=== PATIENT | female | born 2000 | race Caucasian/White ===

== ENCOUNTER 2024-01-14 18:21 | Emergency (ER) | payer MEDICAID, SELFPAY ==
[2024-01-14 18:26] VITALS: BP 137/71; PULSE 88; RESP 18; TEMP 36.8; O2SAT 98; BMI 35.0
--- NOTE | 2024-01-14 18:26 | ED_ITS ---
HPI - Ear Problem General Chief complaint: Ear Problems Stated complaint: Left ear pain Time Seen by Provider: 01/14/24 18:25 Source: patient Mode of arrival: ambulatory Limitations: no limitations History of Present Illness ED Provider: Wen Luciano APRN HPI Narrative: 23 yo female with no known medical history here with complaints of left ear pain since Monday with itching. No drainage. No fevers, chills, hearing loss. No recent illneses. Related Data Previous Rx's ?Medication ?Instructions ?Recorded amoxicillin 500 mg capsule 500 mg PO BID #20 caps 01/14/24 Allergies Allergy/AdvReac Type Severity Reaction Status Date / Time No Known Allergies Allergy Verified 01/14/24 18:27 Review of Systems Review of Systems: Yes all other systems are reviewed and are negative Constitutional: Constitutional: Reports no additional constitutional complaints, Denies body ache(s), Denies chills, Denies fever(s), Denies headache(s) and Denies weakness Eyes: Eyes: Reports no additional eye complaints and Denies change in vision ENT: Reports system reviewed and no additional complaints, except as documented, Denies dizziness, Denies ear discharge, Reports otalgia, Denies headache(s), Denies hearing loss, Denies nasal congestion, Denies nasal discharge, Denies neck pain and Denies tinnitus Cardiovascular: Cardiovascular: Reports no additional cardiovascular complaints, Denies chest pain, Denies leg edema and Denies dyspnea Respiratory: Respiratory: Reports no additional respiratory complaints, Denies cough and Denies dyspnea Gastrointestinal: Gastrointestinal: Reports no additional gastrointestinal complaints, Denies abdominal pain, Denies diarrhea, Denies nausea and Denies vomiting Genitourinary: Genitourinary: Reports no additional female genitourinary complaints and Denies urinary incontinence Musculoskeletal: Musculoskeletal: Reports no additional musculoskeletal complaints, Denies back pain, Denies arthralgias, Denies joint swelling, Denies neck pain, Denies numbness and Denies tingling Integumentary/Breasts: Skin/Breast: Reports system reviewed and no additional complaints, except as docu and Denies rash Neurologic: Reports system reviewed and no additional complaints, except as documented, Denies Abnormal speech present, Denies dizziness, Denies headache(s), Denies numbness, Denies tingling and Denies weakness [facility] Past Medical History Attestation statement: The following information was validated with the patient. Source: old records reviewed and nursing notes reviewed Social History Social History Do you have a plan to hurt others: No Plan Physical Exam Vital Signs: Vital Signs: Last Vital Signs Temp 98.2 F 01/14/24 18:26 Pulse 88 01/14/24 18:26 Resp 18 01/14/24 18:26 BP 137/71 01/14/24 18:26 Pulse Ox 98 01/14/24 18:26 O2 Del Method Room Air 01/14/24 18:26 BMI result Body Mass Index 35.0 Const: General: cooperative, healthy appearing, comfortable and no acute distress Orientation/consciousness: patient oriented x3 Limitations: no limitations HEENT: Head: Yes normal to inspection Ears: hearing grossly normal bilaterally, TM normal on the right, EAC's normal, mastoids normal, no periauricular adenopathy and TM abnormal (left ) bulging, wth effusion and erythematous General nose exam: Normal external nose present Face and sinus: Yes normal facial exam Mouth: Normal oral and palatal mucosa present Throat: Yes posterior oropharynx normal, Yes tonsils normal and Yes uvula midline Eyes: General: appearance normal, both eyes and all related structures Pupils: Equal, round and reactive pupils present Neck: Neck: Yes normal visual inspection, Yes full ROM, Yes no lymphadenopathy and Yes no meningeal signs Chest: Chest palpation & inspection: normal inspection of the chest Resp: Effort & Inspection: normal respiratory effort Auscultation: clear to auscultation bilaterally Cardio: Rate: regular rate Rhythm: regular rhythm Peripheral pulses: Peripheral pulses 2+ throughout GI: Inspection: Yes normal to inspection Palpation (GI): Soft to palpation and nontender Auscultation: normal bowel sounds Back/Spine/Pelvis: Thoracic/Lumbar Spine: thoracic and lumbar spine normal to inspection Skin: General skin exam: no rashes or lesions noted Neuro: General: patient oriented x3, no meningeal signs, no focal motor deficits and normal sensation to monofilament Cranial nerves: Yes Equal, round and reactive pupils present Cognition (Neuro): normal cognition Speech: No Abnormal speech present Gait exam (Neuro): Normal gait present Motor exam (neuro): 5/5 motor strength present throughout Extrem: General: Yes normal to inspection Medical Decision Making Medical Decision Making [facility] Narrative: 23 yo female with no known medical history here with complaints of left ear pain since Rafa with itching. No drainage. No fevers, chills, hearing loss. No recent illneses. Exam is c/w with L AOM Will place on amoxicillin x 10 days Differential Diagnosis Differential Diagnoses: The differential diagnosis associated with the presentation includes Otitis media Low suspicion for otitis externa, malignant otitis externa, mastoiditis Admission/Observation Consideration of admission/observation: Escalation of care including admission/observation considered low suspicion of malignant otitis externa, mastoiditis requiring advanced imaging, urgent ENT consultation Tests considered The following testing was considered but not selected: low suspicion of malignant otitis externa, mastoiditis requiring advanced imaging Prescription Management I considered prescription management with: Antibiotic Discharge Plan Discharge Clinical Impression: Otitis media Patient Disposition: Home, Self-Care Instructions: Ear Infection (ED) Additional Instructions: Take Motrin or Tylenol for pain as needed at home Take the antibiotic as prescribed Prescriptions: New amoxicillin 500 mg capsule 500 mg PO BID Qty: 20 0RF Referrals: Physician,Unknown J [Primary Care Provider] - 1 week
[2024-01-14 18:38] VITALS: BP 137/71; PULSE 88; RESP 18; TEMP 36.8; O2SAT 98
== END 2024-01-14 18:39 | disposition home or self-care (01) ==
LOC: HO.ED 18:36
PROVIDERS: Emergency Provider Internal Medicine
DX: H66.92 Otitis media, unspecified, left ear (principal); H92.02 Otalgia, left ear
CPT/HCPCS: 99282

== ENCOUNTER 2024-11-26 14:18 | Outpatient (REF) | payer MEDICAID, SELFPAY ==
--- OUTSIDE RECORDS SUMMARY | 2024-11-26 09:40 | XMS_ITS | Encounter Summary ---
Author Organization [employer] Address [address] [place] [address] Care Team Providers Care Rolling Mill Operator Helper Name Role Phone Marleen Muñoz MD Primary Care Provider [phone] Reason for Visit * Reason Comments Cervical Cancer Screening Encounter Details Date Type Department Care Team (Latest Contact Info) Description 11/26/2024 9:40 AM EDT Procedure Visit [facility] [address] [place], [place] [id number] Jammie Tobias MD [address] [place] [address] Cervical cancer screening (Primary Dx) Social History Tobacco Use Types Packs/Day Years Used Date Smoking Tobacco: Never Smokeless Tobacco: Never Depression Answer Date Recorded Patient Health Questionnaire-9 Score 4 10/28/2024 Patient Health Questionnaire-9 Score 4 10/28/2024 Last PHQ-9: Questionnaire Data Not on file 0 10/28/2024 Housing Stability Answer Date Recorded What is your housing situation today? I have maribel pascal 10/28/[address] you li ve. Do you have problems with any of the following? None of the above 10/28/2024 Food Insecurity Answer Date Recorded Within the past 12 months, y ou worried that your food would run out before you got money to buy more: Never True 10/28/2024 Within the past 12 months,th e food you bought just didn't last and you didn't have enough money to get more: Never True 01/2025 Transportation Answer Date Recorded In the past 12 months, has l ack of transportation kept you from medical appts, meetings, work or from getting things needed for daily living? No 10/28/2024 Utilities Answer Date Recorded In the past 12 months, has t he electric, gas, oil or water company threatened to shut off services in your home? No 11/14/2024 Depression Answer Date Recorded Patient Health Questionnaire-2 Score 1 10/28/2024 Internet Access Answer Date Recorded Internet Access Q1 No 11/14/2024 Internet Access Q2 I do not want or need it 10/19 Comments Unknown Sex and Gender Information Value Date Recorded Sex Assigned at Female 08/29/2024 9:22 AM EDT Legal Sex Female 8:40 PM EDT Gender Identity Female 08/29/2024 9:22 AM EDT Sexual Orientation Straight 08/29/2024 9: 22 AM EDT documented as of this encounter Last Filed Vital Signs Vital Sign Reading Time Taken Comments Blood Pressure 124/82 11/26/2024 9:46 AM EDT Pulse 76 11/26/2024 9:46 AM EDT Temperature 37 C (98.6 F) 11/26/2024 9:46 AM EDT Respiratory Rate 20 11/26/2024 9:46 AM EDT Oxygen Saturation - - Inhaled Oxygen Concentration - - Weight 81.3 kg (179 lb 3.2 oz) 11/26/2024 9:46 A M EDT Height 154 cm (5' 0.63 ) 11/26/2024 9:46 AM EDT Body Mass Index 34.27 11/26/2024 9:46 AM EDT documented in this encounter Progress Notes * Jammie Tobias MD - 11/26/2024 9:40 AM EDT Images from the original note were not included. Subjective Patient ID: Judy Byrnes is a 24 y.o. female who presents for Cervical Cancer Screening. 24 y.o. female here for annual well woman preventive exam. LMP: Patient's last menstrual period was 11/20/2024 (exact date). Sexual activity: Social History Substance and Sexual Activity Sexual activity: Yes Partners: Male control/protection: Rhythm intention: BC method: Smoking hx: Tobacco Use: Low Risk (11/26/2024) Tobacco Smoking Tobacco Use: Never Smokeless Tobacco Use: Never Passive Exposure: Not on file Alcohol use hx: Social History Substance and Sexual Activity Alcohol use: None OBHx: # 1 - Date: None, Sex: None, Weight: None, GA: None, Type: None, Apgar1: None, Apgar5: None, Living: None, Comments: None # 2 - Date: None, Sex: None, Weight: None, GA: None, Type: None, Apgar1: None, Apgar5: None, Living: None, Comments: None IPV: Denies IPV Reviewed family hx Review of patient's family history indicates: Problem: Other (htn) Relation: Mother Name: Age of Onset: (Not Specified) Problem: Other (htn) Relation: Father Name: Age of Onset: (Not Specified) Problem: Ovarian cancer Relation: Father's Sister Name: Age of Onset: (Not Specified) Health Maintenance: No results found for: HMPAP , HMMAMMO , HMCOLON Review of Systems Constitutional: Negative for appetite change, fatigue and fever. HENT: Negative for congestion, postnasal drip and rhinorrhea. Eyes: Negative for discharge and redness. Respiratory: Negative for apnea, cough, chest tightness and shortness of breath. Cardiovascular: Negative for chest pain. Gastrointestinal: Negative for abdominal pain. Endocrine: Negative for polyphagia. Genitourinary: Negative for difficulty urinating, dysuria and urgency. Musculoskeletal: Negative for arthralgias. Neurological: Negative for dizziness, light-headedness, numbness and headaches. Hematological: Negative for adenopathy. Does not bruise/bleed easily. Objective Visit Vitals BP 124/82 Pulse 76 Temp 98.6 ??F (37 ??C) (Oral) Resp 20 Ht 5' 0.63 (1.54 m) Wt 179 lb 3.2 oz (81.3 kg) LMP 11/20/2024 (Exact Date) BMI 34.27 kg/m?? Smoking Status Never BSA 1.86 m?? Physical Exam Vitals reviewed. Exam conducted with a child specialist present. HENT: Head: Normocephalic and atraumatic. Pulmonary: Effort: Pulmonary effort is normal. Chest: Chest wall: No deformity, tenderness or crepitus. Breasts: Breasts are symmetrical. Right: Normal. No inverted nipple, mass, nipple discharge, skin change or tenderness. Left: Normal. No inverted nipple, mass, nipple discharge, skin change or tenderness. Comments: Left sided ecchymosis Genitourinary: Urethra: No prolapse. Vagina: Normal. Cervix: Normal. Rectum: Normal. Musculoskeletal: Cervical back: Normal range of motion. Lymphadenopathy: Upper Body: Right upper body: No supraclavicular, axillary or pectoral adenopathy. Left upper body: No supraclavicular, axillary or pectoral adenopathy. Psychiatric: Mood and Affect: Mood normal. Assessment/Plan Problem List Items Addressed This Visit Cervical cancer screening - Primary 24 y.o. here for cervical cancer screening. Will continue monitoring following ASCCP guidelines. Rpt 3 yrs Relevant Orders Pap Smear documented in this encounter Miscellaneous Notes * Assessment & Plan Note - Jammie Tobias MD - 11/26/2024 10:07 AM EDT Associated Problem(s): Cervical cancer screening 24 y.o. here for cervical cancer screening. Will continue monitoring following ASCCP guidelines. Rpt 3 yrs documented in this encounter Plan of Treatment Scheduled Orders Name Type Priority Associated Diagnoses Orde r Schedule Pap Smear Pathology and Cytology Routine Cervical cancer screening Ordered: 11/26/2024 documented as of this encounter Visit Diagnoses Diagnosis Cervical cancer screening- Primary Screening for malignant neoplasm of the cervix documented in this encounter Additional Health Concerns Assessment Noted Time PHQ-9 Depression Total Score: 4 10/29/19 25 11:17 AM EDT documented as of this encounter Care Teams Rolling Mill Operator Helper Relationship Specialty Start Date End Date Marleen Muñoz MD [address] [place] [id number] PCP - General Family Medicine 11/14/24 documented as of this encounter
--- OUTSIDE RECORDS SUMMARY | 2024-11-26 15:00 | XMS_ITS | Encounter Summary ---
Author Organization [facility] Address [address] [place] [address] Care Team Providers Care Binder Stripper Hand Name Role Phone Jessica Lamas Primary Care Provider [phone] Reason for Referral * Consultation (Urgent) - Authorized Specialty Diagnoses / Procedures Referred By Rajinder barr Referred To Contact Otolaryngology Diagnoses Abscess of left ear canal Otitis externa of left ear, unspecified chronicity, unspecified type Radha Hughes [address] [place] [phone] Phone: tel: fax: [facility] [address] [place] [address] Phone: tel: fax: Referral ID Status Reason Start Date Expiration Date Visits Requested Visits Authorized [id number] Authorized Specialty Services Required 10/29/2024 11/29/2025 6 6 Reason for Visit * Reason Comments left ear canal abscess and Oe * Consultation (Urgent) - Authorized Specialty Diagnoses / Procedures Referred By Rajinder barr Referred To Contact Otolaryngology Diagnoses Abscess of left ear canal Otitis externa of left ear, unspecified chronicity, unspecified type Radha Hughes [address] [place] [id number] Phone: tel: fax: [facility] [address] [place] [phone] Phone: tel: fax: Referral ID Status Reason Start Date Expiration Date Visits Requested Visits Authorized [id number] Authorized Specialty Services Required 10/29/2024 11/29/2025 6 6 Encounter Details Date Type Department Care Team (Latest Contact Info) Description 11/26/2024 3:00 PM EDT Hospital Encounter [facility] [address] [place], [place] [id number] Physical Therapy Coordinator: Urmila Martinez, CRISTI Mccracken [address] [place] [phone] Itching of ear (Primary Dx) Social History Tobacco Use Types Packs/Day Years Used Date Smoking Tobacco: Never Assessed Comments Unknown Sex and Gender Information Value Date Recorded Sex Assigned at Not on file Legal Sex Female 11:24 AM EDT Gender Identity Female 11/26/2024 1:01 PM EDT Sexual Orientation Straight 11/26/2024 1: 01 PM EDT documented as of this encounter Last Filed Vital Signs Vital Sign Reading Time Taken Comments Blood Pressure 133/82 11/26/2024 3:41 PM EDT Pulse 74 11/26/2024 3:41 PM EDT Temperature - - Respiratory Rate - - Oxygen Saturation - - Inhaled Oxygen Concentration - - Weight - - Height - - Body Mass Index - - documented in this encounter Progress Notes * CRISTI Mckeon - 11/26/2024 3:59 PM EDT Date of visit: 11/26/2024 Name: Judy Sanford : 2000 Chief Complaint: Left itchy ear History of Present Illness: Judy is a pleasant 24 y.o. female who says she was treated for a left ear canal abscess in the ED a month ago with oral antibiotics and since then her left otalgia has resolved; however, she continues to have chronic ear itchiness. She says she often uses a lani pin to scratch her ears and thenthey get infected. She also complains of intermittent otalgia. She denies any otorrhea, fever/chills or any other pertinent medical problems. REVIEW OF SYSTEMS: A 10 point review of systems was conducted with the patient and is otherwise negative except as noted in the history of present illness No past medical history on file. No past surgical history on file. Click to expand medication list[1] No family history on file. Allergies: No Known Allergies Vital signs: BP 133/82 (BP Location: Left arm, Patient Position: Sitting) Pulse 74 Otologic Exam: Both ears were first examined otoscopically, but due to the patient's clinical presentation and theneed for depth perception in evaluating the ear canal and tympanic membrane, both ears were examined under binocular microscopy. AURICLES: No lesions RIGHT EAR: The external auditory canal is normal, the TM is healthy in appearance with normal landmarks. There is no evidence of effusion, middle ear mass or defects within the drum. The TM is mobileon pneumatic otoscopy LEFT EAR: The external auditory canal is normal, the TM is healthy in appearance with normal landmarks. There is no evidence of effusion, middle ear mass or defects within the drum. The TM is mobile on pneumatic otoscopy Facial function normal. No spontaneous nystagmus. General Head and Neck Exam: GENERAL: Well-nourished female, no acute distress. HEAD: Normocephalic, atraumatic, no large lesions. VOICE: Strong without significant hoarseness. EYES: Normal ocular motility, sclera and conjunctiva clear, no proptosis NOSE: Normal external appearance; mucosa is pink and moist, septum is minimally deviated, no significant turbinate hypertrophy. ORAL CAVITY: buccal mucosa moist, no lesions. Tongue no lesions, Hard palate normal, no masses. OROPHARYNX: Soft palate normal, no lesions, normal elevation, no tonsillar abnormalities Posterior pharyngeal wall: No cobblestoning FACE AND SALIVARY GLANDS: +Significant TMJ tenderness. No salivary gland masses or sinus tenderness. NECK: No masses or crepitus, trachea midline. THYROID: No thyroid tenderness or appreciable thyroid masses. LYMPHATIC: No neck lymphadenopathy. CARDIOVASCULAR: No upper extremity edema. RESPIRATORY: Unlabored without stridor or retractions. PSYCH: Oriented and normally conversant. Assessment and Plan: Judy is a pleasant 24 y.o. female who says she was treated for a left ear canal abscess in the ED a month ago with oral antibiotics and since then her left otalgia has resolved; however, she continues to have chronic ear itchiness. She says she often uses a lani pin to scratch her ears and then they get infected. She also complains of intermittent otalgia. She denies any otorrhea, fever/chills or any other pertinent medical problems. No concerning findings on exam so I reassured her that the left ear infection appears to have resolved. I recommended dermotic ear drops for mild eczematous otitis and cautioned her against sticking anything in her ears. Additionally, I counseled her about TMJ and recommended wearing a ocean lifeguard specialist,softer foods, warm compresses and seeing her dentist. She will follow up with ENT as needed if any new or worsening symptoms. I sincerely appreciate the opportunity to participate in Judy's care today. Please do not hesitate to contact me with any questions. Malik Martinez PA-C 11/26/2024 3:59 PM [1] Not in a hospital admission. documented in this encounter Plan of Treatment Scheduled Referrals Name Type Priority Associated Diagnoses Order Schedule Ambulatory referral to ENT Outpatient Referral Routine Once for 1 Occurrences starting 11/26/2024 until 11/26/2024 documented as of this encounter Visit Diagnoses Diagnosis Itching of ear- Primary documented in this encounter Care Teams Binder Stripper Hand Relationship Specialty Start Date End Date Jessica Lamas [address] [place] [address] PCP - General 10/29/24 documented as of this encounter
--- OUTSIDE RECORDS SUMMARY | 2024-11-26 16:53 | XMS_ITS | Clinical Summary ---
Author Organization [facility] Address [address] [id number] Care Team Providers Care Senior Functional Analyst Name Role Phone Jessica Lamas Primary Care Provider [phone] Allergies No known active allergies Medications fluocinolone acetonide oiL 0.01 % drops Place 4 drops into affected ear(s) 2 times a day as needed (itchy ears). 20 mL 11 11/26/2024 Active Encounters Date Type Department Care Team Description 11/26/2024 3:00 PM EDT Hospital Encounter [facility] [address] [place] [id number] Sr Account Executive: Urmila Martinez, CRISTI Mccracken Itching of ear (Primary Dx) 11/01/2024 Telephone [facility] [address] [place] [phone] Sr Account Executive: Urmila Muse Telephone Intake, Staff PAC Patient Request Call Back; PAC Appt Request - New 10/29/2024 Transcribe Orders [facility]erral [facility] [address] [place] [id number] Radha Hughes Abscess of left ear canal (Primary Dx); Otitis externa of left ear, unspecified chronicity, unspecified type from Last 3 Months Social History Tobacco Use Types Packs/Day Years Used Date Smoking Tobacco: Never Assessed Comments Unknown Sex and Gender Information Value Date Recorded Sex Assigned at Not on file Legal Sex Female 11:24 AM EDT Gender Identity Female 11/26/2024 1:01 PM EDT Sexual Orientation Straight 11/26/2024 1: 01 PM EDT Last Filed Vital Signs Vital Sign Reading Time Taken Comments Blood Pressure 133/82 11/26/2024 3:41 PM EDT Pulse 74 11/26/2024 3:41 PM EDT Temperature - - Respiratory Rate - - Oxygen Saturation - - Inhaled Oxygen Concentration - - Weight - - Height - - Body Mass Index - - Plan of Treatment Health Maintenance Due Date Last Done Comments HIV Screening 2000 Hepatitis C Screening 2000 Pap Smear 1998 Varicella Vaccines (1 of 2 - 13+ 2-dose series) 2011 HPV Vaccines (1 - 3-dose series) 2013 Hepatitis B Vaccines (1 of 3 - 19+ 3-dose series) 2017 Alcohol/Substance Use Screening 03/20/2024 Depression Screening and Follow-Up 03/20/2024 Social Drivers of Health Hortensia ual Screening 03/20/2024 COVID-19 Vaccine (1 - 2023-2 5 season) 2024 Influenza Vaccine (#1) 2024 DTaP,Tdap,and Td Vaccines (2 - Td or Tdap) 11/14/2034 11/14/2024 RSV Vaccine (60+ years old a nd patients) (1 - 1-dose 75+ series) 2073 Pneumococcal Vaccine: Pediat staci (0-5 Years) and At-Risk Patients (6-50 Years) Aged Out No longer eligible b ased on patient's age to complete this topic Insurance HSNO/FREE CARE Care Teams Senior Functional Analyst Relationship Specialty Start Date End Date Jessica Lamas [address] [place] [phone] PCP - General 10/29/24
--- OUTSIDE RECORDS SUMMARY | 2024-11-26 16:53 | XMS_ITS | Encounter Summary ---
Author Organization [facility] Address [address] [place] [address] Care Team Providers Care Oracle Adf Consultant Name Role Phone Jessica Lamas Primary Care Provider [phone] Reason for Visit * Reason Onset Date Comments PAC Patient Request Call Back 11/01/2024 PAC Appt Request - New 11/01/2024 Encounter Details Date Type Department Care Team ([facility] st Contact Info) Description 11/01/2024 Telephone [facility] [address] [place] [address] Qa Developer: Urmila Muse Telephone Intake, Staff PAC Patient Request Call Back; PAC Appt Request - New Social History Tobacco Use Types Packs/Day Years Used Date Smoking Tobacco: Never Assessed Comments Unknown Sex and Gender Information Value Date Recorded Sex Assigned at Not on file Legal Sex Female 11:24 AM EDT Gender Identity Female 11/26/2024 1:01 PM EDT Sexual Orientation Straight 11/26/2024 1: 01 PM EDT documented as of this encounter Miscellaneous Notes * Telephone Encounter - Eamon Watson - 11/01/2024 11:35 AM EDT Left ear abscess-referral from ED in [place]-as per DT, schedule within 14 days PAC does not have anything available Please assist patient w/yard jockey [phone] documented in this encounter Plan of Treatment Not on file documented as of this encounter Visit Diagnoses Not on filedocumented in this encounter Care Teams Oracle Adf Consultant Relationship Specialty Start Date End Date Jessica Lamas [address] [place] [id number] PCP - General 10/29/24 documented as of this encounter
--- OUTSIDE RECORDS SUMMARY | 2024-11-26 16:53 | XMS_ITS | Encounter Summary ---
Author Organization [employer] Address [address] [facility] [address] [place] [address] Care Team Providers Care Assessment Technician Name Role Phone Marleen Muñoz MD Primary Care Provider [phone] Encounter Details Date Type Department Care Team (Latest Contact Info) Description 11/26/2024 Travel Social History Tobacco Use Types Packs/Day Years [...] AM EDT documented as of this encounter Plan of Treatment Not on file documented as of this encounter Visit Diagnoses Not on filedocumented in this encounter Additional Health Concerns Assessment Noted Time PHQ-9 Depression Total Score: 4 10/29/19 11:17 AM EDT documented as of this encounter Care Teams Assessment Technician Relationship Specialty Start Date End Date Malreen Muñoz MD [address] [place] [phone] PCP - General Family Medicine 11/14/24 documented as of this encounter
--- OUTSIDE RECORDS SUMMARY | 2024-11-26 16:53 | XMS_ITS | Encounter Summary ---
Author Organization [facility] [employer] Address [address] [facility] [address] [place] [address] Care Team Providers Care Systems Software Developer Name Role Phone Marleen Muñoz MD Primary Care Provider [phone] Encounter Details Date Type Department Care Team (Latest Contact Info) Description 11/25/2024 Travel Social History Tobacco Use Types Packs/Day [...] documented as of this encounter Care Teams Systems Software Developer Relationship Specialty Start Date End Date Marleen Muñoz MD [address] [place] [phone] PCP - General Family Medicine 11/14/24 documented as of this encounter
--- OUTSIDE RECORDS SUMMARY | 2024-11-26 16:54 | XMS_ITS | Clinical Summary ---
Author Organization [facility] Address [address] [place] [address] 7[address] [place] [address] Care Team Providers Care Body Builder Name Role Phone Marleen Muñoz MD Primary Care Provider [phone] Allergies No known active allergies Medications neomycin-polym yxin-hydrocort isone (Cortisporin) 3.5-91186-[address] DROPS IN EACH EAR THREE TIMES DAILY FOR 7 DAYS 08/30/19 25 025 Discontinued( erapy completed) doxycycline (Vibra-Tabs) 100 MG tabletIndicati ons:Left ear pain Take 1 tablet (100 mg) by mouth 2 times daily for 7 days. Take with a full glass of water and do not lie down for at least 30 minutes after. 14 tablet 10/23/19 25 025 omeprazole (PriLOSEC) [address] capsule Take as needed for acid reflux. Up to twice daily. Do not crush or chew. 28 capsule 10/23/19 25 025 Discontinued cefadroxil (Duricef) 500 MG capsuleIndicat ions:Left ear pain,Abscess Take 1 capsule (500 mg) by mouth 2 times daily. for 5-7 days 14 capsule 10/29/19 25 025 Discontinued acetic acid-hydrocort isone (Vosol-HC) otic solutionIndica tions:Left ear pain Administer 3 drops into the left ear 3 times daily for 10 days. 10 mL 10/29/19 25 025 Active Problems Problem Noted Date Diagnosed Date Cervical cancer screening 11/26/2024 Assessment & Plan (11/26/2024 10:07 AM EDT): 24 y.o. here for cervical cancer screening. Will continue monitoring following ASCCP guidelines. Rpt 3 yrs Encounters Date Type Department Care Team Description 11/26/2024 9:40 AM EDT Procedure Visit [facility] [address] [place] [address] Jammie Tobias MD Cervical cancer screening (Primary Dx) 11/26/2024 Travel 11/25/2024 Travel 11/14/2024 9:00 AM EDT Office Visit [facility] [address] [place] [address] Marleen Muñoz MD Class 1 obesity without serious comorbidity with body mass index (BMI) of 34.0 to 34.9 in adult, unspecified obesity type (Primary Dx); Encounter for immunization; Encounter to establish care 11/14/2024 Travel 11/13/2024 Telephone [facility] [address] [place] [address] Marleen Muñoz MD Chart Prep 11/10/2024 Travel 11/07/2024 Patient Outreach [facility] [address] [place] [phone] Neo Small MD Pre-visit Planning (Pre visit planning LVM ) 10/28/2024 11:30 AM EDT Office Visit [facility] [address] [place] [phone] Radha Hughes ANP Left ear pain (Primary Dx); Abscess; Acute otitis externa of left ear, unspecified type 10/28/2024 Travel 10/25/2024 Telephone [facility] [address] [place] [phone] Fabienne Corrales MA chart prep 10/22/2024 1:20 PM EDT Office Visit [facility] [address] [place] [phone] Radha Hughes ANP Left ear pain (Primary Dx); Abscess 10/22/2024 Travel 08/29/2024 9:40 AM EDT Office Visit [facility] [address] [address] Kiran Palacios MD Other otitis externa, bilateral (Primary Dx) 08/29/2024 Telephone [facility] [address] [place] [address] Kiran Palacios MD from Last 3 Months Immunizations Immunization Administration Dates Next Due Tdap 11/14/2024 Family History Medical History Relation Name Comments htn Father Ovarian cancer Father's Sister htn Mother Relation Name Status Comments Father Alive Father's Sister Mother Alive Social History Tobacco Use Types Packs/Day Years Used Date Smoking Tobacco: Never Smokeless Tobacco: Never Tobacco Cessation:Counseling Given: Not Answered Depression Answer Date Recorded Patient Health Questionnaire-9 [...] Orientation Straight 08/29/2024 9: 22 AM EDT Last Filed Vital Signs Vital Sign Reading Time Taken Comments Blood Pressure 124/82 11/26/2024 9:46 AM EDT Pulse 76 11/26/2024 9:46 AM EDT Temperature 37 C (98.6 F) 11/26/2024 9:46 AM EDT Respiratory Rate 20 11/26/2024 9:46 AM EDT Oxygen Saturation 99% 11/14/2024 9:11 AM EDT Inhaled Oxygen Concentration - - Weight 81.3 kg (179 lb 3.2 oz) 11/26/2024 9:46 A M EDT Height 154 cm (5' 0.63 ) 11/26/2024 9:46 AM EDT Body Mass Index 34.27 11/26/2024 9:46 AM EDT Plan of Treatment Health Maintenance Due Date Last Done Comments HIV Screening 1998 Lipid Panel 1998 Family Planning (PISQ) 2013 HPV Vaccines (1 - 3-dose series) 2013 Hepatitis C Screening 02/05/2016 Hepatitis B Vaccines (1 of 3 - 19+ 3-dose series) 2017 Pap Smear 2019 COVID-19 Vaccine ( - 2023-2 5 season) 2024 Influenza Vaccine (#1) 2024 Alcohol/Substance Use Screening 10/28/2025 10/28/2024 Depression Screening 10/28/2025 10/28/2024, 10/28/2024 Disability Screening 11/10/2025 11/10/2024 SDOH Screening 11/14/2025 11/14/2024 Tobacco Screening 11/26/2025 11/26/2024 DTaP/Tdap/Td Vaccines (2 - T d or Tdap) 11/14/2034 11/14/2024 Zoster Vaccines (1 of 2) 02/05/2048 RSV Patients and Patients Aged 60 years or older (1 - 1-dose 75+ series) 2073 HIB Vaccines Aged Out No longer eligi ble based on patient's age to complete this topic Hepatitis A Vaccines Aged Out No long er eligible based on patient's age to complete this topic IPV Vaccines Aged Out No longer eligi ble based on patient's age to complete this topic Meningococcal B Vaccine Aged Out No l onger eligible based on patient's age to complete this topic Meningococcal Vaccine Aged Out No celso hi eligible based on patient's age to complete this topic Pneumococcal Vaccine: Pediatrics (0 to 5 Years) and At-Risk Patients (6 to 49) Years Aged Out No longer eligible b ased on patient's age to complete this topic RSV under 20 months Aged Out No longe r eligible based on patient's age to complete this topic Rotavirus Vaccines Aged Out No longer eligible based on patient's age to complete this topic [place] [address] [place] [address] LIMITED [facility] Care Teams Body Builder Relationship Specialty Start Date End Date Marleen Muñoz MD [address] [place] [phone] PCP - General Family Medicine 11/14/24
== END 2024-11-26 14:19 | disposition home or self-care (01) ==
LOC: HO.LNP 14:18
PROVIDERS: Visit Provider Family Medicine
DX: Z12.4 Encounter for screening for malignant neoplasm of cervix (principal)
CPT/HCPCS: 88175